=== PATIENT | female | born 1980 | race Two or more races ===

== ENCOUNTER 2025-10-19 10:29 | Outpatient (CLI) | payer OTHER | END 2025-10-19 10:30 | disposition home or self-care (01) | LOC: PRENATAL 10:29 | PROVIDERS: ATTEND Obstetrics & Gynecology Maternal & Fetal Medicine | DX: O44.02 Complete placenta previa NOS or without hemorrhage, second trimester (principal); O34.219 Maternal care for unspecified type scar from previous cesarean delivery; O10.012 Pre-existing essential hypertension complicating pregnancy, second trimester; O24.312 Unspecified pre-existing diabetes mellitus in pregnancy, second trimester; O99.282 Endocrine, nutritional and metabolic diseases complicating pregnancy, second trimester; O09.522 Supervision of elderly multigravida, second trimester; Z3A.22 22 weeks gestation of pregnancy ==